=== PATIENT | male | born 1970 | race Caucasian/White ===

== ENCOUNTER 2019-03-23 07:01 | Day surgery (SDC) | payer OTHER ==
[~2019-03-23] VITALS: Ht 180.3 cm; Wt 88.5 kg
[~2019-03-23 07:01] MED LIST: ATOR1TAB19 PO; FISH7.5C PO; MELO7.5T35 PO; MELO7.5T7 PO; MULT1TAB10 PO; MULTCAP PO; RA T500C2 PO; TURM500T PO; TYLE650T35 PO
[2019-03-23] MEDS ORDERED: NS 1,000 ML IV ONE (07:15)
[2019-03-23] MEDS ORDERED: PROPOFOL 200 MG/20 ML VIAL As Ordered ONE (07:58)
[2019-03-23] MEDS ORDERED: LIDOCAINE 2% INJ 100 MG/5 ML SDV (FOR ANES.) As Ordered ONE (07:58)
--- NOTE | 2019-03-23 08:39 | ROOR ---
Patient Name: Tyrell Cervantes Procedure Date: 03/23/2019 8:21 AM Date of : 1970 Age: 48 Room: [facility] Gender: Male Note Status: Finalized Procedure: Colonoscopy Indications: Screening for colorectal malignant neoplasm Providers: Enio Mahajan Jr, MD Referring MD: Broderick Dumont MD Requesting Provider: Medicines: Propofol per Anesthesia Complications: No immediate complications. Procedure: Pre-Anesthesia Assessment: - Prior to the procedure, a History and Physical was performed, and patient medications and allergies were reviewed. The patient is competent. The risks and benefits of the procedure and the sedation options and risks were discussed with the patient. All questions were answered and informed consent was obtained. Patient identification and proposed procedure were verified by the physician and the nurse in the pre-procedure area and in the procedure room. Mental Status Examination: alert and oriented. Airway Examination: normal oropharyngeal airway and neck mobility. Respiratory Examination: clear to auscultation. CV Examination: normal. ASA Grade Assessment: II - A patient with mild systemic disease. After reviewing the risks and benefits, the patient was deemed in satisfactory condition to undergo the procedure. The anesthesia plan was to use moderate sedation / analgesia (conscious sedation). Immediately prior to administration of medications, the patient was re-assessed for adequacy to receive sedatives. The heart rate, respiratory rate, oxygen saturations, blood pressure, adequacy of pulmonary ventilation, and response to care were monitored throughout the procedure. The physical status of the patient was re-assessed after the procedure. The Colonoscope was introduced through the anus and advanced to the cecum, identified by appendiceal orifice and ileocecal valve. The colonoscopy was performed without difficulty. The patient tolerated the procedure well. The quality of the bowel preparation was adequate. Findings: The rectum, recto-sigmoid colon, descending colon, transverse colon, ascending colon, cecum, appendiceal orifice and ileocecal valve appeared normal. A few small and large-mouthed diverticula were found in the sigmoid colon. Impression: - The rectum, recto-sigmoid colon, descending colon, transverse colon, ascending colon, cecum, appendiceal orifice and ileocecal valve are normal. - Diverticulosis in the sigmoid colon. - No specimens collected. Recommendation: - Discharge patient to home (ambulatory). - Repeat colonoscopy in 10 years for screening purposes. Enio Mahajan MD Enio Mahajan Jr, MD 03/23/2019 8:39:12 AM Electronically signed by Enio Mahajan Jr, MD Number of Addenda: 0 Note Initiated On: 03/23/2019 8:21 AM Estimated Blood Loss: Estimated blood loss: none.
[2019-03-23 08:55] VITALS: BP 120/89
== END 2019-03-23 09:09 | disposition home or self-care (01) ==
LOC: M OPP 07:01
PROVIDERS: ATTEND Surgery
DX: K57.30 Diverticulosis of large intestine without perforation or abscess without bleeding (principal); Z12.11 Encounter for screening for malignant neoplasm of colon

== ENCOUNTER 2021-06-09 18:19 | Emergency (ER) | payer OTHER ==
[~2021-06-09] VITALS: Ht 180.3 cm; Wt 90.9 kg
[~2021-06-09 18:19] MED LIST changes: +ACET650T61 PO; -TYLE650T35 PO
[2021-06-09 18:20] VITALS: BP 189/102
[2021-06-09] MEDS ORDERED: fentaNYL 100 MCG/2 ML INJECTION (J3010) IV ONE (19:35)
[2021-06-09] MEDS ORDERED: NS 500 ML IV ONE (19:35)
--- NOTE | 2021-06-09 19:36 | REPVR ---
PROCEDURE INFORMATION: Exam: CT Head Without Contrast Exam date and time: 06/09/2021 7:02 PM Age: 50 years old Clinical indication: Injury or trauma; Fall; Blunt trauma (contusions or hematomas); Additional info: Fall from ladder 10+ft TECHNIQUE: Imaging protocol: Computed tomography of the head without contrast. Radiation optimization: All CT scans at this facility use at least one of these dose optimization techniques: automated exposure control; mA and/or kV adjustment per patient size (includes targeted exams where dose is matched to clinical indication); or iterative reconstruction. COMPARISON: No relevant prior studies available. FINDINGS: Brain: Normal. No hemorrhage. Unremarkable white matter. No mass effect. Cerebral ventricles: No ventriculomegaly. Paranasal sinuses: Visualized sinuses are unremarkable. No fluid levels. Mastoid air cells: Visualized mastoid air cells are well aerated. Bones/joints: Unremarkable. No acute fracture. Soft tissues: Unremarkable. IMPRESSION: No acute intracranial abnormality. Electronically signed by: Clayton Seals On 06/09/2021 19:36:37 PM
--- NOTE | 2021-06-09 19:40 | REPVR ---
PROCEDURE INFORMATION: Exam: CT Cervical Spine Without Contrast Exam date and time: 06/09/2021 7:02 PM Age: 50 years old Clinical indication: Injury or trauma; Fall; Blunt trauma; Additional info: Fall from ladder 10+ft TECHNIQUE: Imaging protocol: Computed tomography images of the cervical spine without contrast. Radiation optimization: All CT scans at this facility use at least one of these dose optimization techniques: automated exposure control; mA and/or kV adjustment per patient size (includes targeted exams where dose is matched to clinical indication); or iterative reconstruction. COMPARISON: No relevant prior studies available. FINDINGS: Bones/joints: No acute fracture. Normal alignment. Discs/Spinal canal/Neural foramina: Disc space narrowing at C5-C6 and C6-C7 with intervertebral osteophytes. Moderate to severe bilateral foraminal narrowing at C5 and severe foraminal narrowing on the left and mild foraminal narrowing on the right at C6 secondary to osteophytic encroachment. Intervertebral disc osteophyte complexes at C5-C6 and C6-C7 effaces the ventral subarachnoid space with mild cord impingement at C5-C6. Lungs: Lung apices are normal. Soft tissues: Unremarkable. IMPRESSION: Mild degenerative spondylosis. No acute findings. Electronically signed by: Clayton Seals On 06/09/2021 19:39:42 PM
--- NOTE | 2021-06-09 20:28 | REPVR ---
PROCEDURE INFORMATION: Exam: CT Thoracic Spine Without Contrast Exam date and time: 06/09/2021 8:13 PM Age: 50 years old Clinical indication: Injury or trauma; Fall; Blunt trauma (contusions or hematomas); Additional info: Fall off 10 ft ladder, severe back pain TECHNIQUE: Imaging protocol: Computed tomography images of the thoracic spine without contrast. Radiation optimization: All CT scans at this facility use at least one of these dose optimization techniques: automated exposure control; mA and/or kV adjustment per patient size (includes targeted exams where dose is matched to clinical indication); or iterative reconstruction. COMPARISON: CT Spine,cervical w/o contrast 06/09/2021 7:01 PM FINDINGS: Vertebrae: Compression deformity partially visualized on this examination dedicated to the thorax. Possibility of an acute fracture not excluded. Correlation with accompanying lumbar CT suggested. Otherwise unremarkable. Discs/Spinal canal/Neural foramina: No significant disc protrusion. No severe spinal canal stenosis. No significant neural foraminal narrowing. Soft tissues: Unremarkable. IMPRESSION: 1. Compression deformity partially visualized on this examination dedicated to the thorax. Possibility of an acute fracture not excluded. Correlation with accompanying lumbar CT suggested. 2. Otherwise unremarkable. Electronically signed by: Clayton Seals On 06/09/2021 20:28:20 PM
--- NOTE | 2021-06-09 20:33 | REPVR ---
PROCEDURE INFORMATION: Exam: CT Lumbar Spine Without Contrast Exam date and time: 06/09/2021 8:13 PM Age: 50 years old Clinical indication: Injury or trauma; Fall; Blunt trauma (contusions or hematomas); Additional info: Fall off 10 ft ladder, severe back pain TECHNIQUE: Imaging protocol: Computed tomography images of the lumbar spine without contrast. Radiation optimization: All CT scans at this facility use at least one of these dose optimization techniques: automated exposure control; mA and/or kV adjustment per patient size (includes targeted exams where dose is matched to clinical indication); or iterative reconstruction. COMPARISON: No relevant prior studies available. FINDINGS: Vertebrae: Acute compression deformity demonstrated at L1 with loss of approximately 45% of maximum vertebral height anteriorly. No significant retropulsion of bony elements or significant alteration in the contour of the posterior aspect of the L1 vertebral body compromise in the spinal canal. L1-L2: No significant disc protrusion. No severe spinal canal stenosis. No significant neural foraminal narrowing. L2-L3: No significant disc protrusion. No severe spinal canal stenosis. No significant neural foraminal narrowing. L3-L4: Moderate central spinal stenosis L3-L4 secondary to a bulging annulus, ligamentum flavum hypertrophy, and congenitally shortened pedicles. L4-L5: Moderate to severe central spinal stenosis L4-L5 secondary to a bulging annulus with ligamentum flavum hypertrophy. L5-S1: Bilateral facet joint arthropathy L5-S1. No spinal stenosis. Soft tissues: Unremarkable. IMPRESSION: 1. Findings consistent with an acute compression deformity at L1 as described above. Marked loss of vertebral height demonstrated anteriorly. 2. Moderate central spinal stenosis L3-L4 secondary to a bulging annulus, ligamentum flavum hypertrophy, and congenitally shortened pedicles. 3. Moderate to severe central spinal stenosis L4-L5 secondary to a bulging annulus with ligamentum flavum hypertrophy. Electronically signed by: Clayton Seals On 06/09/2021 20:33:09 PM
[2021-06-09] MEDS ORDERED: MORPHINE 4 MG/ML 1ML VIAL/SYRINGE (J2270) IV ONE ×2 (20:50→21:55)
[2021-06-09 20:55] LABS: ALBUMIN 4.6 GM/DL (3.2-5.2); BILIRUBIN,DIRECT 0.2 MG/DL (0.0-0.2); BILIRUBIN,TOTAL 0.7 MG/DL (0.2-1.0); TOTAL PROTEIN 8.3 GM/DL (6.4-8.2)
[2021-06-09 21:39] LABS: BASO % 0.2 % (0.0-1.0); HEMATOCRIT 46.5 % (42.0-52.0); HEMOGLOBIN 15.8 g/dl (13.5-17.5); LYMPH # 0.5 10^3/uL (1.5-5.0); MEAN CORPUSCULAR VOLUME 94.1 fl (80.0-96.0); MONO # 0.6 10^3/uL (0.0-0.8); MONO % 4.7 % (2.0-8.0); NEUTROPHILS # 11.2 10^3/uL (1.5-8.5); NEUTROPHILS % 90.5 % (36.0-66.0); PLATELET COUNT, AUTOMATED 200 10^3/uL (150-450); RED BLOOD COUNT 4.94 10^6/uL (4.30-6.10); WHITE BLOOD COUNT 12.4 10^3/uL (4.0-10.0)
[2021-06-09] MEDS ORDERED: HYDR-3713 PO (22:19)
[2021-06-09] MEDS ORDERED: NORCO 5/325MG TABLET (BULK FOR ED) PO ONE (22:20)
--- NOTE | 2021-06-10 11:15 | ED PDOC ---
Post-Departure Follow-Up ct t spine and ct ls spine faxed to dr minor and dr patton for fu Airam Marsh MD Jun 10, 2021 11:15
== END 2021-06-09 22:47 | disposition home or self-care (01) ==
LOC: M ED 18:19
DX: S32.010A Wedge compression fracture of first lumbar vertebra, initial encounter for closed fracture (principal); W11.XXXA Fall on and from ladder, initial encounter; Y92.018 Other place in single-family (private) house as the place of occurrence of the external cause; E78.5 Hyperlipidemia, unspecified; Z88.5 Allergy status to narcotic agent
CPT/HCPCS: 70450; 72125; 72128; 72131; 80076; 85025; 86850; 86900; 86901; 96361; 96374; 96375; 96376; 99282; J2270; J3010